=== PATIENT | male | born 1970 | race Hispanic/Latino ===

== ENCOUNTER 2019-09-17 12:07 | Inpatient (IN) ==
[2019-09-17 13:05] LABS: INR 1.43; PROTIME 17.7 Seconds (11.0-16.0)
[2019-09-17 13:06] LABS: PTT 41.4 Seconds (22.3-41.8)
[2019-09-17 13:13] LABS: BASO# 0.01 X1000 (0.0-0.2); BASO% 0.3 % (0.0-0.8); EOS# 0.08 X1000 (0.0-0.7); EOS% 2.2 % (0.0-10.0); HEMATOCRIT 19.5 % (42.0-52.0); HEMOGLOBIN 5.8 g/dL (14.0-18.0); LYMPH# 0.85 X1000 (1.2-3.4); LYMPH% 22.9 % (20.5-51.1); MCH 26.5 PG (27-31); MCHC 29.7 g/dL (33-37); MONO# 0.43 X1000 (0.11-0.59); MONO% 11.6 % (1.7-9.3); MPV 11.9 FL (7.4-10.4); NEUT# 2.34 X1000 (1.4-6.5); PLT 57 X1000 (130-400); RBC 2.19 XMIL (4.7-6.1); RDW 16.8 % (11.5-14.5); WBC 3.71 X1000 (4.8-10.8)
[2019-09-17 13:28] LABS: ALB/GLOB RATIO 1.3; ALBUMIN 3.3 g/dL (3.5-5.0); ALKALINE PHOSPHATASE 121 U/L (32-122); BUN 11 mg/dL (8-22); CALCIUM 8.6 mg/dL (8.8-10.2); CREATININE 0.7 mg/dL (0.7-1.2); ESTIMATED GFR > 60; GLUCOSE 101 mg/dL (70-104); GOT 49 U/L (10-34); GPT 24 U/L (10-44); TCO2 21 mmol/L (25-35); TOTAL BILIRUBIN 0.83 mg/dL (0.20-1.00); TOTAL PROTEIN 5.9 g/dL (6.3-8.3)
[2019-09-17 13:29] LABS: ANISOCYTOSIS 2+; BANDS 4 % (0-1); HYPOCHROM 2+; LYMPHS 20 % (21-51); MONO 2 % (1-9); SEGS 74 % (42-75)
[2019-09-17 13:30] LABS: LARGE PLATELETS 1+
[2019-09-17 13:34] LABS: CHLORIDE 106 mmol/L (98-107); POTASSIUM 3.7 mmol/L (3.5-5.1); SODIUM 136 mmol/L (136-145)
--- NOTE | 2019-09-17 14:11 | Diag Imaging Result Doc PS360 ---
EXAM: CT ABD/PELVIS W/IV CONT ONLY 09/17/2019 HISTORY: GI bleeding, H Pylori positive TECHNIQUE: This exam was performed using automated exposure control, adjustment of mA or kV according to patient size, and/or use of iterative reconstruction technique. COMMENT: There are no previous studies. There is some atelectatic or fibrotic opacity in the costophrenic angles particularly of the right lower lobe. There is ascites. The liver is nodular in contour consistent with cirrhosis. There is splenomegaly the spleen measuring almost 18 cm in anterior posterior dimension. The pancreas is unremarkable. The portal vein appears to be patent. The aorta is not distended. There are calcifications in the distal aorta and iliac arteries. There our prominent mesenteric nodes some of which exceeds 18 mm in size. The stomach is not distended. The appendix is normal in appearance. There is no evidence of bowel obstruction. The kidneys are without evidence of hydronephrosis or mass. The adrenal glands are not enlarged. Pelvis: The urinary bladder is not distended. There is no evidence of significant adenopathy in the pelvis. There are no masses. There is no evidence of acute bony abnormality. IMPRESSION: Cirrhosis with splenomegaly and ascites. Mesenteric adenopathy. Electronically signed by Jesse Schultz 09/17/2019 2:09 PM
[2019-09-17 14:17] LABS: AGAP 9; COSMO 271
--- NOTE | 2019-09-17 15:33 | PROVIDER DOCUMENTATION ---
This chart was entered by Eileen Gibson Scribe, acting as scribe for Braydon Crowe MD. HPI-Abdominal Pain/GI Problem - General Chief Complaint: GI Bleed Stated Complaint: GI BLEED-CLINIC REFERRED Time Seen by Provider: 09/17/19 12:33 Source: patient, family () Allergies/Adverse Reactions: Patient Allergies Allergy/AdvReac Type Severity Reaction Status Date / Time No Known Allergies Allergy Verified 09/17/19 15:56 Home Medications: Home Medication List Medication Instructions Recorded Confirmed Last Taken Type NK [No Home Medications] 09/17/19 09/17/19 Unknown History - History of Present Illness-ABD Nature of Presenting Problems: 49 yohm presents to the ed with c/o epigastric pain with bloody stool for 3 weeks. pt went to see PMD and was told his INR 5.2 and has H Pylori and was told to come to ed. pt is unsure if he wants to be admitted but assured dr and looked at the pt and sts 'he will go In" Abdominal Pain Onset Location: reports: epigastric Pain Radiation: reports: no radiation Quality of Pain: reports: aching Severity in ED: reports: moderate Onset/Duration: reports: other (3 weeks) Timing: reports: still present, intermittent, getting worse Activities at Onset: reports: light activity Exposure to sick contacts?: No Modifying Factors: worse with: defecating Associated Symptoms: reports: fatigue, malaise, other (bloody stool). denies: back/neck pain, chest pain, fever/chills, nausea, shortness of breath, vomiting Last BM: this morning Dark Stools Present?: reports: bright red blood Rectal Bleeding: reports: bright red blood on paper, blood mixed with stool # of Diarrhea Episodes: 0 Rectal Pain: reports: none # of Vomiting Episodes: 0 Emesis Description: reports: none Bruising or Bleeding Gums?: No Similar Symptoms Previously?: No Recently seen or treated by another doctor?: Yes (PMD) Review of Systems - Adult - REVIEW OF SYSTEMS - ADULT Constitutional: reports: see miles CARRILLO. denies: chills, fever Eyes: reports: no symptoms reported Ears, Nose, Mouth & Throat: reports: no symptoms reported Cardiovascular: denies: chest pain, edema, palpitations Respiratory: denies: shortness of breath, wheezing Gastrointestinal: reports: see HPI, abdominal pain, rectal bleeding. denies: diarrhea, nausea, vomiting Genitourinary: reports: no symptoms reported Musculoskeletal: denies: back pain, neck pain Integumentary: reports: no symptoms reported Neurological: denies: dizziness/vertigo, headache/migraines Psychiatric: reports: no symptoms reported Endocrine: reports: no symptoms reported Hematologic/Lymphatic: reports: no symptoms reported Allergic/Immunologic: reports: no symptoms reported All Other Systems: Reviewed and Negative Past History - Adult - PAST MEDICAL HISTORY-ADULT Review of Records: reports: Old Records Reviewed, Nursing Assessment Review, Medications Reviewed, Social history reviewed & non-contributory. Major Childhood Illnesses: reports: denies history Cardiovascular: reports: denies history Respiratory: reports: denies history Gastrointestinal: reports: denies history Genitourinary: reports: denies history Musculoskeletal: reports: denies history Neurological: reports: denies history Psychiatric: reports: denies history Endocrine/Immune: reports: denies history Other Conditions: reports: denies history - PRIOR SURGERIES/PROCEDURES Surgical/Procedure History: reports: none - IMMUNIZATION STATUS Childhood Immunizations: See Nurse Assessment Flu Vaccine: See Nurse Assessment - FAMILY HISTORY Family History: reviewed, not pertinent - SOCIAL HISTORY Smoking: quit greater than 1 year Substance Use: denies Living Situation: family Physical Exam-General - PHYSICAL EXAM-ADULT Initial Vital Signs Reviewed: Yes - CONSTITUTIONAL General Appearance: alert, no apparent distress, obese - EYES Eyes: PERRL/EOMI - HEAD, EARS, NOSE, MOUTH & THROAT HENMT: moist mucous membranes - NECK Neck: non-tender, full range of motion, supple, normal inspection - RESPIRATORY Respiratory: chest non-tender, lungs clear, normal breath sounds - CARDIOVASCULAR Cardiovascular: normal peripheral pulses, regular rate, rhythm - CHEST (BREASTS) Chest/Breast: deferred - GASTROINTESTINAL (ABDOMEN) Abdominal Exam: soft, guarding, tenderness (epigastric) - GENITOURINARY Male Genitalia: deferred Rectal Exam: black stool Hemoccult Exam: heme positive stool - LYMPHATIC Lymphatic: no adenopathy - MUSCULOSKELETAL Back Exam: no CVA tenderness, no vertebral tenderness Extremity: normal range of motion, non-tender, normal gait - SKIN Integumentary: normal turgor, warm/dry, pallor - NEUROLOGIC Neurologic: grossly normal - PSYCHIATRIC Psych/Mental Status: normal mood/affect, normal thought content, normal thought process, oriented x 3 Progress - PLAN OF CARE/RESULTS Progress/Plan/Lab Results: Vital Signs - 8 hr 09/17/19 12:12 Temperature 98.1 F Pulse Rate 69 Respiratory Rate 16 Blood Pressure 149/72 O2 Sat by Pulse Oximetry 100 Orders Category Date Time Status Saline Loc NOW Care 09/17/19 12:29 Active Transfuse .Give-Transfuse Care 09/17/19 12:51 Active CBC WITH DIFF [HEME] Stat Lab 09/17/19 12:43 Results COMPREHENSIVE METABOLIC PANEL [CHEM] Stat Lab 09/17/19 12:43 Received OCCULT BLOOD SCREENING [STOOL] Stat Lab 09/17/19 12:34 Uncollected PRBC [LRPC (RED CELLS)] [BBK] Stat Lab 09/17/19 12:43 Received PROTIME WITH INR [COAG] Stat Lab 09/17/19 12:43 Received PTT [COAG] Stat Lab 09/17/19 12:43 Received TYPE & SCREEN [BBK] Stat Lab 09/17/19 12:43 Received Abd Pain/Abn Bleeding Stat Oth 09/17/19 12:29 Ordered Result Diagrams: 09/17/19 12:43 09/17/19 12:43 - REASSESSMENT Reassessment #1 Time Reassessed: 15:38 ( at bedside) Status: unchanged - CT/MRI 1 CT Study: Abdomen, Pelvis Impression: See EMR Report (EXAM: CT ABD/PELVIS W/IV CONT ONLY 09/17/2019 HISTORY: GI bleeding, H Pylori positive TECHNIQUE: This exam was performed using automated exposure control, adjustment of mA or kV according to patient size, and/or use of iterative reconstruction technique. COMMENT: There are no previous studies. There is some atelectatic or fibrotic opacity in the costophrenic angles particularly of the right lower lobe. There is ascites. The liver is nodular in contour consistent with cirrhosis. There is splenomegaly the spleen measuring almost 18 cm in anterior posterior dimension. The pancreas is unremarkable. The portal vein appears to be patent. The aorta is not distended. There are calcifications in the distal aorta and iliac arteries. There our prominent mesenteric nodes some of which exceeds 18 mm in size. The stomach is not distended. The appendix is normal in appearance. There is no evidence of bowel obstruction. The kidneys are without evidence of hydronephrosis or mass. The adrenal glands are not enlarged. Pelvis: The urinary bladder is not distended. There is no evidence of significant adenopathy in the pelvis. There are no masses. There is no evidence of acute bony abnormality. IMPRESSION: Cirrhosis with splenomegaly and ascites. Mesenteric adenopathy. Electronically signed by Jesse Schultz 09/17/2019 2:09 PM 09/17/19 1409 Interpreting Physician: Jesse Schultz MD Dictated Date/Time: 09/17/19 1404 cc: Braydon Crowe MD; None,PCP) - CONSULTS/PCP/HOSPITALIST Notification #1 *Consult/PCP/Hospitalist*: hospitalist dr cifuentes Time Discussed: 15:39 Consult Disposition: Will see in ED, Admit Departure - Departure Date of Disposition Decision: 09/17/19 Time of Disposition Decision: 15:32 DIAGNOSIS: Pancytopenia, Severe anemia GI bleeding Qualifiers: GI bleed type/associated pathology: unspecified gastrointestinal hemorrhage type Qualified Code(s): K92.2 - Gastrointestinal hemorrhage, unspecified Disposition: ADMITTED INPATIENT 09 Certified Medical Emergency: Emergent Condition: Fair Referrals and Follow-Ups: None,PCP [Primary Care Provider] - - Critical Care Note This patient required my direct & personal management of CC.: Yes Total Time (mins): 36 Critical Care Statement: This patient required my direct personal management to treat or rule out processes, the absence of which, could potentiallly result in sudden, clinically significant life or limb threatening deterioration. Attestation - Physician/ ANGIE Attestation Patient care was provided by Advanced Practice Provider:: No The physician spent face to face time with patient:: Yes Advanced Practice Provider documentation review:: Supervising physician onsite and consulted in the evaluation and care of this patient. The physician did have a face to face encounter with the patient. This chart was documented by the indicated scribe, (Eileen Gibson Scribe) and accurately reflects the services I performed and decisions made by me, Braydon Crowe MD, as attested by the provider's signature.
[2019-09-17] MEDS ORDERED: PROTONIX IV ONE (16:02)
[2019-09-17] MEDS ORDERED: SODIUM CHLORIDE 0.9% INJ ONE (16:02)
[2019-09-17] MEDS ORDERED: ATIVAN IV PRN ×2 (16:19→16:43)
[2019-09-17] MEDS ORDERED: ZOFRAN IV PRN (16:43)
[2019-09-17] MEDS ORDERED: TYLENOL PO PRN (16:43)
[2019-09-17] MEDS: NS 1,000 ML IV SCH (17:20)
--- NOTE | 2019-09-17 19:17 | HISTORY AND PHYSICAL ---
CHIEF COMPLAINT: Fatigue, dizziness, GI bleed. HISTORY OF PRESENT ILLNESS: A 49-year-old male with a past medical history of alcohol abuse. Now new diagnosis of liver cirrhosis and splenomegaly with ascites by CT scan with mesenteric adenopathy. He presented to the emergency department with chief complaint of generalized weakness and dizziness. As per the patient, he started having a melena on 08/29/2019 and that episode lasted about 3 days. After that, he has been having problems with dizziness, fatigue, and he has been also complaining of shortness of breath. As per the patient, he drinks on a daily basis. His last drink was yesterday. He drinks 3 to 6 beers daily. The patient states he mostly do it during the night because he needs them to sleep. In the emergency department, he was found to be severely anemic with a hemoglobin of 5.8. Also, he is basically pancytopenic. His white blood cell count is 3.7 and the platelet count is 57,000, I do not have any previous records or lab work for this patient, he will be admitted to the medical floor. Gastroenterology Department has been consulted. He received 3 units of PRBCs. I had a large conversation with the patient and the family at the bedside about alcohol abuse and liver cirrhosis. He seems to understand as well as the family. This patient denies nausea, vomiting, constipation. He is not having melena at this moment. He has not been losing weight. He seems to be having some lower extremity edema on and off that he noticed. N dysuria. No cough. REVIEW OF SYSTEMS: All the 14 points of review of his system were reviewed. All of them negative except as per HPI. PAST SURGICAL HISTORY: None. PAST MEDICAL HISTORY: None. IMAGING: CT scan today showed liver cirrhosis with splenomegaly and ascites, some mesenteric adenopathy. SOCIAL HISTORY: He is a contraction worker. He does not smoke or do drugs, but he has been drinking 3 to 6 beers daily for the past 20 years. FAMILY HISTORY: His father due to liver cirrhosis. Apparently, he also was a heavy drinker. PHYSICAL EXAMINATION: VITAL SIGNS: Temperature 98.1 degrees, pulse 65, respiratory rate 16, blood pressure 131/72, oxygen saturation 100% on room air. HEENT: Head normocephalic. No trauma. PERRLA. NECK: Is supple. No JVD. No masses. Central trachea. CHEST: Clear to auscultation. Some crepitus at the bases. ABDOMEN: Soft, distended. Positive bowel sounds. He does have some ascites. Positive wave sign. EXTREMITIES: 1+ lower extremity edema. No clubbing. No cyanosis. NEUROLOGICAL: The patient is awake and alert. He is oriented x3. No focal deficits. LABORATORY: WBC 3.7, hemoglobin 5.8, hematocrit 19.5, platelets 57,000. PT 17.7, INR 1.4, PTT 41.4. Sodium 136, potassium 3.7, chloride 106, bicarbonate 21, BUN 11, creatinine 0.7, glucose 101, calcium 8.6. AST 49, ALT 24, alkaline phosphatase 121, albumin 3.3. ASSESSMENT AND PLAN: 1. Gastrointestinal bleed. Likely upper gastrointestinal bleed. This patient has severe anemia and is symptomatic. Per the patient, he had some med melena on 08/29/2019 for about 3 days and then it stopped. Gastroenterology department has been consulted. We will monitor this patient closely. He will receive 3 units of blood. 2. Severe anemia, symptomatic. He will receive 3 units of packed red blood cells. Likely this is secondary to gastrointestinal bleed. We will monitor this patient's hemoglobin and hematocrit closely. He does not seem to have an active bleeding at this moment. 3. Liver cirrhosis, splenomegaly and mesenteric adenopathy. This is a new diagnosis for this patient. He is a heavy drinker. He has been drinking for more 20 years or more 3 to 6 beers per day. Gastroenterology Department has been consulted. I will monitor. He does not seem to be decompensated. 4. Alcohol abuse. This patient has been highly advised against alcohol use. I will continue with daily cessation education. Family members at the bedside and they were educated as well. 5. Pancytopenia, likely due to liver dysfunction/bone marrow suppression due to alcohol. We will monitor this on a daily basis. cc: Edilson Arellano MD
[2019-09-17] MEDS: M.V.I.-12 10 ML, FOLIC ACID 1 MG, MAGNESIUM SULFATE 1 GM, THIAMINE 100 MG in NS 1,000 ML IV SCH (21:35)
[2019-09-18] MEDS: NS 1,000 ML IV SCH ×3 (06:23→18:28)
[2019-09-18] MEDS: PROTONIX IV SCH ×2 (06:23→17:31)
[2019-09-18] MEDS: M.V.I.-12 10 ML, FOLIC ACID 1 MG, MAGNESIUM SULFATE 1 GM, THIAMINE 100 MG in NS 1,000 ML IV SCH (08:11)
[2019-09-18 08:29] LABS: BASO# 0.02 X1000 (0.0-0.2); BASO% 0.4 % (0.0-0.8); EOS# 0.15 X1000 (0.0-0.7); HEMATOCRIT 26.7 % (42.0-52.0); HEMOGLOBIN 8.4 g/dL (14.0-18.0); IMM GRAN# 0.04 X1000 (0.0-0.04); IMM GRAN% 0.8 % (0.0-0.5); LYMPH# 1.12 X1000 (1.2-3.4); MCH 27.5 PG (27-31); MCHC 31.5 g/dL (33-37); MCV 87.5 FL (81-99); MONO# 0.45 X1000 (0.11-0.59); MONO% 8.9 % (1.7-9.3); MPV 12.5 FL (7.4-10.4); NEUT% 64.9 % (42.2-75.2); PLT 59 X1000 (130-400); RBC 3.05 XMIL (4.7-6.1); RDW 15.6 % (11.5-14.5); WBC 5.08 X1000 (4.8-10.8)
[2019-09-18 08:33] LABS: AGAP 10; BUN 8 mg/dL (8-22); CALCIUM 8.1 mg/dL (8.8-10.2); CHLORIDE 107 mmol/L (98-107); COSMO 272; CREATININE 0.7 mg/dL (0.7-1.2); ESTIMATED GFR > 60; GLUCOSE 97 mg/dL (70-104); POTASSIUM 3.8 mmol/L (3.5-5.1); SODIUM 137 mmol/L (136-145); TCO2 20 mmol/L (25-35)
--- NOTE | 2019-09-18 13:11 | GASTROENTEROLOGY CONSULTATION ---
DATE: 09/18/2019 REASON FOR CONSULT: GI bleed and anemia. HISTORY OF PRESENT ILLNESS: Mr. Seaman is a 49-year-old male who has a history of alcohol abuse. Patient has denied any other medical problems. He presented to the emergency department with complaints of generalized weakness and dizziness. Patient mentioned that he been noticing his stools being dark and tarry since August 29 and lasted about 3 to 4 days. Since then, he is feeling dizzy, weak, fatigued and SOB. Patient is an alcoholic and consumes 4-6 beers on a daily basis. The patient has currently denied any nausea or vomiting but he complains of abdominal pain in the epigastric area. His hemoglobin on admission was 5.8 and hematocrit was 19.5. Today, they are 8.4 and 26.7. He has so far received 3 units of blood. The patient had an abdomen and pelvis CT done which showed that he has got cirrhosis with splenomegaly, ascites, and mesenteric adenopathy. He currently has denied any fever, chills, or chest pain but only complain of abdominal pain in the epigastric area. He has rated it as 2/10 and describes it as soreness in the upper abdominal area. PAST MEDICAL HISTORY: The patient has denied having any health problems. PAST SURGICAL HISTORY: The patient has denied any surgeries in the past. SOCIAL HISTORY: He is and has 3 kids. He does not smoke or do illicit drugs but has been drinking alcohol for almost 20 years. FAMILY HISTORY: His dad had cirrhosis. ALLERGIES: No known drug allergies. HOME MEDICATIONS: The patient has denied taking any medications. REVIEW OF SYSTEMS: As per HPI. Otherwise, 12-point review of systems is negative. PHYSICAL EXAMINATION: Vital Signs: Temperature 98.0 degrees, pulse 72, respirations 22, blood pressure 140/65, oxygen saturation 100% on room air. The patient's weight is 185 pounds. BMI is 30.8 kg/m2. General: Patient is obese, alert, oriented x3. Answering questions appropriately and in no acute distress. HEENT: Pale conjunctivae. Mild icterus. PERRL. Neck: Supple. Lungs: Clear to auscultation. Cardiovascular: Regular rate and rhythm. Abdomen: Distended, firm, tender in the epigastric area. Hypoactive bowel sounds heard in all 4 quadrants. Extremities: No clubbing, no cyanosis, no edema. Pedal pulses 2+ present bilaterally. Neurologic: He is alert, oriented x3. Nonfocal. Cranial nerves 2-12 grossly intact. LABORATORY DATA: WBCs of 5.08, RBCs 3.05, hemoglobin is 8.4, hematocrit is 26.7, platelet count is 59,000. PT is 17.7, INR is 1.43. Sodium is 137, potassium 3.8, chloride 107, carbon dioxide 20, anion gap 10, BUN 8, creatinine 0.7, glucose 97, calcium 8.1. Total bilirubin is 0.83, AST 49, ALT 24, alkaline phosphatase 121, albumin is 3.3. Abdomen and pelvis CT has shown cirrhosis with splenomegaly, ascites, and mesenteric adenopathy. IMPRESSION AND PLAN: 1. Gastrointestinal bleed. 2. Abdominal pain. 3. Blood loss anemia. ETOH cirrhosis with small amount of ascites 4. Alcohol abuse. 5. Abnormal CT scan. PLAN: Mr. Seaman is a 49-year-old, male with a history of alcohol abuse. GI has been consulted for his GI bleed. The patient is currently receiving normal saline at 75 mL per hour. He is on an MVI bag at 1013.2 mL per hour. The patient is receiving Protonix 40 mg IV twice a day. We plan to do an EGD tomorrow to rule out the cause of his bleeding. We have discussed the risks, benefits, and alternatives to the patient and family, they acknowledge understanding of the procedure. Further plan of care will be based on the EGD findings. This plan was discussed with Dr. Lilly. Thank you for your consult. Please call us for any further questions or concerns. Dictated by ANGELINE Guerra for Yoan Lilly MD Physician Attestation I have seen and examined the patient. I have discussed and reviewed the note by Haily MARCUS and agree with findings and plan as documented. In brief, Mr. Yaz Seaman is a 49 year old alcoholic who presented with symptomatic anemia in the setting of recent melenic stools. No prior EGD/colonoscopy. No hematemesis or rectal bleeding. He is on PPI IV BID. Transfuse prn goal hgb 7-8, EGD on . Counseled on ETOH cessation. MTDD
--- NOTE | 2019-09-18 16:40 | PROGRESS NOTE ---
DATE: 09/18/2019 SUBJECTIVE: This patient seems to be feeling a bit better compared with yesterday. He is still complaining of generalized weakness, he has been evaluated by Gastroenterology department. He will be scoped hopefully tomorrow to see the source of bleeding. OBJECTIVE: Vital Signs: Temperature 98 degrees, pulse 72, respiratory rate 22, blood pressure 140/65. Oxygen saturation 100% on room air. HEENT: Head normocephalic. No trauma. PERRLA. Neck: Supple. No JVD. No masses. Central trachea. Chest: Clear to auscultation. No wheezing. No rales. Abdomen: Soft, protuberant, slightly distended. Positive bowel sounds. No signs of peritoneal irritation. Extremities: 1+ lower extremity edema. No clubbing. No cyanosis. Neurological: The patient is awake, alert, he is oriented x3. No focal deficits. LABORATORY: WBC 5.0, hemoglobin 8.4, hematocrit 26.7, platelets 59,000. Sodium 137, potassium 3.8, chloride 107, bicarbonate 20, BUN 8, creatinine 0.7, glucose 97, calcium 8.1. ASSESSMENT AND PLAN: 1. Gastrointestinal bleed, likely upper gastrointestinal bleed. This patient came in with severe symptomatic anemia. Per the patient, he had some melena on 08/29/2019 for about 3 days and then stopped. Gastrointestinal department evaluated this patient. They will scope this patient hopefully tomorrow. He received 3 units of packed red blood cells. 2. Severe anemia, symptomatic, status post 3 units of packed red blood cells likely secondary to gastrointestinal bleed. 3. Liver cirrhosis, splenomegaly and mesenteric adenopathy by CT scan. As per the patient, he has never been diagnosed with liver cirrhosis before, he is a heavy drinker. He drinks at least 3 to 6 beers per day for more than 20 years. Gastrointestinal department consulted. Continue to monitor. He does not seem to be decompensated. 4. Alcohol abuse. This patient has been highly advised against alcohol use. I will continue with daily cessation education. 5. Thrombocytopenia likely due to kidney dysfunction, white blood cell count improved. The patient will be n.p.o. after midnight for esophagogastroduodenoscopy. cc: Edilson Arellano MD
[2019-09-18] MEDS: SODIUM CHLORIDE 0.9% INJ SCH (17:31)
[2019-09-18] MEDS: VITAMIN K 10 MG in NS 50 ML IV SCH (20:49)
[2019-09-19] MEDS: PROTONIX IV SCH ×2 (06:09→21:14)
[2019-09-19] MEDS: VITAMIN K 10 MG in NS 50 ML IV SCH (08:45)
[2019-09-19] MEDS: M.V.I.-12 10 ML, FOLIC ACID 1 MG, MAGNESIUM SULFATE 1 GM, THIAMINE 100 MG in NS 1,000 ML IV SCH (08:45)
[2019-09-19 08:48] LABS: HEMOGLOBIN 9.2 g/dL (14.0-18.0)
[2019-09-19 09:03] LABS: AGAP 10; ALKALINE PHOSPHATASE 105 U/L (32-122); BUN 7 mg/dL (8-22); CALCIUM 8.5 mg/dL (8.8-10.2); CHLORIDE 109 mmol/L (98-107); COSMO 275; CREATININE 0.7 mg/dL (0.7-1.2); ESTIMATED GFR > 60; GLUCOSE 91 mg/dL (70-104); GOT 45 U/L (10-34); GPT 24 U/L (10-44); POTASSIUM 3.7 mmol/L (3.5-5.1); SODIUM 139 mmol/L (136-145); TCO2 20 mmol/L (25-35); TOTAL BILIRUBIN 1.89 mg/dL (0.20-1.00)
[2019-09-19] MEDS ORDERED: DIPRIVAN 1% ONE ×2 (09:58→10:05)
[2019-09-19] MEDS ORDERED: XYLOCAINE-MPF 2% ONE (10:05)
--- NOTE | 2019-09-19 10:16 | ENDOSCOPY OPERATIVE NOTE ---
[facility] ENDOSCOPY OPERATIVE NOTE , EGD PROCEDURE REPORT EXAM DATE: 09/19/2019 PATIENT NAME: Yaz Seaman MR#: [id number] BIRTHDATE: 1970 ATTENDING: Manan Shabazz MD STATUS: inpatient [employer]EL SERVICE APPRENTICE: Marce Watts and Kathia Maldonado INDICATIONS: The patient is a 49 yr old male here for an EGD due to GI bleed, Alcoholism, Liver cirr hosis, Anemia, Thrombocytopenia, required 3 units of PRBCs. PROCEDURE PERFORMED: EGD w/ band ligation of varices MEDICATIONS: Per Anesthesia ESTIMATED BLOOD LOSS: None CONSENT: The patient understands the risks and benefits of the procedure and understands that these r isks include, but are not limited to: sedation, allergic reaction, infection, perforation and/or bleeding. Alternative means of evaluation and treatment include, among others: physical exam, x-rays, and/or surgical intervention. The patient elects to proceed with this endoscopic procedure. DESCRIPTION OF PROCEDURE: During pre-op preparation period all mechanical and medical equipment was c hecked for proper function. Hand hygiene and appropriate measures for infection prevention was taken. After the risks, benefits and alternatives of the procedure were thoroughly explained, Informed consent was verified, confirmed and timeout was successfully executed by the treatment team. The patient was anesthetized with topical anesthesia and the endoscope was introduced through the mouth and advanced to the second portion of the duodenum. Retroflexion wa s performed in the stomach and revealed no abnormalities. The gastroscope was then slowly withdrawn and removed. The p atient's toleration of the procedure was good. ESOPHAGUS: The z-line was noted at. The z-line appeared normal. 42 cms from incisors. There were 3 columns of medium sized varices in the distal esophagus. The varices were not bleeding. Complete hemostasis was achie tammy by placing two bands on the bleeding site(s). STOMACH: Mild acute gastritis (inflammation) was found in the gastric antrum and on the greater curva ture of the gastric body. There were erosions present. DUODENUM: Mild duodenal inflammation was found in the duodenal bulb. The duodenal mucosa showed no abnormalities in the 2nd part of the duodenum. ADVERSE EVENTS: There were no complications. IMPRESSIONS: 1. The z-line was noted at 2. There were 3 columns of medium sized esophageal varices and varices in the distal esophagus; Comp lete hemostasis was achieved by placing two band on the bleeding site(s) 3. Acute gastritis (inflammation) was found in the gastric antrum and on the greater curvature of th e gastric body 4. Duodenal inflammation was found in the duodenal bulb 5. The duodenal mucosa showed no abnormalities in the 2nd part of the duodenum RECOMMENDATIONS: 1. Sandostatin drip at 50 mcg per hour for 72 hours PPI BID for 90 days Iron C BID and MVI Qd for 90 days Quit alcohol completely RTC 6 weeks. 2. Avoid NSAIDs. GERD lifestyle changes Liquid diet for now. 3. Resume previous diet 4. Start anti-reflux diet. REPEAT EXAM: Manan Shabazz MD eSigned: Manan Shabazz MD 09/19/2019 10:15 AM CC: CPT CODES: 74670 Upper gastrointestinal endoscopy including esophagus, stomach, and either the du odenum and/or jejunum as appropriate; with band ligation of esophageal and/or gastric varices ICD CODES: The ICD and CPT codes recommended by this software are interpretations from the data that the [facility] staff has captured with the software. The verification of the translation of this report to the ICD and CPT co deshaun and modifiers is the sole responsibility of the health care institution and practicing physician where this report was generated. [employer] will not be held responsible for the validity of the ICD and CPT codes i ncluded on this report. [facility] assumes no liability for data contained or not contained herein. CPT is a registered tra demark of the [employer]. PATIENT NAME: Yaz Seaman MR#: [id number]
[2019-09-19] MEDS: SANDOSTATIN 500 MICROGM in D5W 100 ML IV SCH (12:54)
[2019-09-19] MEDS: NS 1,000 ML IV SCH ×2 (17:36→21:15)
--- NOTE | 2019-09-19 18:27 | PROGRESS NOTE ---
DATE: 09/19/2019 SUBJECTIVE: Today Mr. Seaman refers to be doing a lot better. He went for the EGD early on today. Currently he is asymptomatic. OBJECTIVE: Vital Signs: Blood pressure is 130/66, pulse of 69, respirations 18, temperature is 98.2. The patient is saturating 100% on room air. General: Mr. Seaman is a 49-year-old gentleman. He is in bed in no distress. HEENT: Mucosa is pink and moist. Anicteric. Acyanotic. Neck: Supple. Chest: Good air entry bilaterally. There are no crepitations or rhonchi. Cardiovascular: Regular rate and rhythm. GI: Abdomen is soft. Bowel sounds present. Extremities: No pedal edema. ORTHOPEDIC NURSE: Patient is awake, alert, oriented. There is no focal deficit. LABORATORY DATA: Hemoglobin is 9.2. Chemistry is also reviewed and is unremarkable. INR was 1.43 on admission. IMAGING STUDIES: Showed that he has cirrhosis with splenomegaly and ascites. The endoscopy report shows that there were 3 columns of medium-sized esophageal varices in the distal esophagus, of which hemostasis was achieved by placing 2 bands on the bleeding sites. There was also acute gastritis found in the gastric antrum and the greater curvature. There was duodenal inflammation on the bulb. The second part of the duodenum was unremarkable. ASSESSMENT AND PLAN: 1. Melena secondary to GI bleed from bleeding esophageal varices. The patient is status post EGD with banding application. He seems to be clinically stable at this point. He is currently on Sandostatin, a proton pump inhibitor. 2. Alcohol use and abuse. 3. Cirrhosis of the liver secondary to alcohol use complicated with splenomegaly, mild ascites and esophageal varices with bleeding and thrombocytopenia. The patient has been advised extensively on alcohol cessation. 4. Coagulopathy, most likely due to underlying cirrhosis. The patient is getting vitamin D. He has also been replaced with other necessary vitamins related with alcohol use and abuse. 5. Anemia secondary to acute GI bleed. The patient is status post 3 PRBC transfusions. Hemoglobin and hematocrit are now stabilized. cc: Kenny Vera MD
[2019-09-19] MEDS: ICAR-C PO SCH (21:14)
[2019-09-19] MEDS: SODIUM CHLORIDE 0.9% INJ SCH (21:14)
[2019-09-20] MEDS: SANDOSTATIN 500 MICROGM in D5W 100 ML IV SCH (00:16)
[2019-09-20] MEDS: SODIUM CHLORIDE 0.9% INJ SCH (06:35)
[2019-09-20] MEDS: PROTONIX IV SCH (06:35)
[2019-09-20] MEDS ORDERED: CENTRUM SILVER PO SCH (09:00)
[2019-09-20] MEDS: VITAMIN K 10 MG in NS 50 ML IV SCH (09:30)
[2019-09-20] MEDS: ICAR-C PO SCH (09:30)
[2019-09-20] MEDS ORDERED: CORGARD PO SCH (09:45)
[2019-09-20] MEDS: M.V.I.-12 10 ML, FOLIC ACID 1 MG, MAGNESIUM SULFATE 1 GM, THIAMINE 100 MG in NS 1,000 ML IV SCH (10:47)
--- NOTE | 2019-09-20 13:48 | GASTROENTEROLOGY PROGRESS NOTE ---
DATE: 09/20/2019 SUBJECTIVE: Mr. Seaman is a 49-year-old male sitting in bed with at the bedside. The patient has denied any nausea or vomiting, but has complained of generalized abdominal tenderness. OBJECTIVE: Vital signs: Temperature 97.9 degrees, pulse 57, respirations 16, blood pressure 132/62. Oxygen saturation 100 percent on room air. The patient's weight is 185 pounds. BMI is 30.8 kg/m2. General: He is alert and oriented x3. Obese and in no acute distress. HEENT: Pale conjunctivae. Mild icterus. PERRL. Neck: Supple. Lungs: Clear to auscultation. Cardiovascular: Patient is bradycardic. Abdomen: Distended, firm, and tender in the epigastric area. Hypoactive bowel sounds heard in all 4 quadrants. Extremities: No clubbing, no cyanosis, no edema. Pedal pulses 2+ present bilaterally. Neurologic: He is alert and oriented x3. LABORATORY: The patient has got no new hematology. His chemistries are from 09/19: Sodium 139, potassium 3.7, chloride 109, carbon dioxide 20, anion gap 10, BUN 7, creatinine 0.7, glucose 91, calcium 8.5, total bilirubin 1.89, AST 45, ALT 24, and alkaline phosphatase is 105. IMPRESSION AND PLAN: GI bleed Abdominal pain Acute blood loss anemia Alcoholic cirrhosis Mild ascites Abnormal CT scan Alcohol abuse PLAN: Mr. Seaman is a 49-year-old male with a history of alcohol abuse. GI is following him for his GI bleed. We did an endoscopy yesterday. The patient had 3 columns of medium-sized esophageal varices and varices in the distal esophagus. Complete hemostasis was achieved by placing 2 bands on the bleeding sites, acute gastritis in the gastric antrum, and on the greater curvature of the gastric body. Duodenal inflammation was found in the duodenal bulb and the duodenal mucosa showed no abnormalities in the second part of the duodenum. The patient was started on Sandostatin drip at 50 mcg/hour. We have stopped that and started him on nadolol 10 mg daily with parameters of holding if the SBP is <100 and HR is < 55. He will continue his PPIs twice a day, and then continue for 3 months. The patient is also on iron and multivitamins, will continue that for 3 months. The patient has been counselled to quit alcohol completely. He is advised to avoid NSAIDs and follow the GERD lifestyle. The patient needs to be seen in 2 weeks for evaluation of his varices banding. We will follow him up as an outpatient in 2 weeks. This plan was discussed with Dr. Lilly. Please call us for any further questions or concerns. Dictated by ANGELINE Guerra for Yoan Lilly MD MTDD
[2019-09-20 14:09] VITALS: BP 132/66
--- NOTE | 2019-09-21 14:42 | DISCHARGE SUMMARY ---
ADMISSION DATE: 09/17/2019 DISCHARGE DATE: 09/20/2019 DISPOSITION: Home. FOLLOW-UP: Will be Dr. Shabazz. CONSULTATION DURING THIS ADMISSION: GI was consulted. Patient was seen by Dr. Lilly. Followed up by Dr. Shabazz. INVASIVE PROCEDURES DONE DURING THIS ADMISSION: EGD was done where 3 columns of medium-sized esophageal varices with bleeding at the distal esophagus were found and binding was applied to the bleeding sites with some complete hemostasis. There was also acute gastritis, duodenitis. ADMISSION DIAGNOSES: 1. Gastrointestinal bleed. 2. Severe anemia. 3. Liver cirrhosis. 4. Alcohol abuse. 5. Pancytopenia. DIAGNOSES AT THE TIME OF DISCHARGE: 1. Melena on presentation secondary to gastrointestinal bleed from bleeding esophageal varix. The patient is status post EGD. Varices were banded. 2. Alcohol use and abuse. 3. Cirrhosis of the liver secondary to alcohol use complicated with splenomegaly, mild ascites, portal hypertension with bleeding esophageal viruses and thrombocytopenia. 4. Coagulopathy secondary to cirrhosis. 5. Symptomatic anemia on presentation with a presenting hemoglobin of 5.8. DISCHARGE MEDICATIONS: 1. Iron 1 tab b.i.d. 2. Thiamine 100 mg p.o. daily. 3. Multivitamin 1 tab daily. 4. Protonix 40 mg b.i.d. PRESENTING COMPLAINT: Fatigue, dizziness, GI bleed. HISTORY OF PRESENT COMPLAINT: Mr. Seaman is a 49-year-old gentleman who presented to the emergency department because of generalized weakness and dizziness for the past 3 days associated with dark stools. Upon presentation Mr. Seaman was evaluated, found to have hemoglobin of 5.8. He was also pancytopenic. He was subsequently admitted for further medical care. HOSPITAL COURSE: Mr. Seaman was initially group and crossmatched, was given 3 units of PRBC. H and H improved from 5.8 to 9.2. He underwent EGD. Please refer to the details of the findings in the chart but briefly there was esophageal varix which was bleeding and this was banded. Postoperatively Mr. Seaman remained stable. He did not have any more GI bleed and he remained asymptomatic. No more dizziness. He has been tolerating a full liquid diet to a soft GI diet. This morning, he has been evaluated by GI and I have also spoken directly with Dr. Lilly. He is okay with Mr. Seaman being discharged and to follow up with them within 2 weeks. Mr. Seaman has been advised on multiple encounters on alcohol cessation. I spent a lengthy time today with the at the bedside, went over alcohol repercussion on long-term and short- term and cessation programs that he can voluntarily subscribe to. This morning Mr. Seaman's vitals: Blood pressure was 132/66, pulse of 53, respirations 15, temperature 97.5 degrees. We think Mr. Seaman is in stable condition to be discharged. All the discharge instructions discussed with him and with the was at the bedside at the time of the encounter. Time spent for discharge is 38 minutes. cc: Kenny Vera MD
== END 2019-09-20 16:37 | disposition home or self-care (01) | DRG 432 ==
LOC: ED 12:07 → SUATTDRO 16:16 → 3N 16:16
PROVIDERS: ATTEND Internal Medicine